=== PATIENT | male | born 1940 | race Caucasian/White ===

== ENCOUNTER → 2017-01-20 | Outpatient (CLI) | payer MEDICARE, BC ==
[2017-01-20 12:09] LABS: ABSOLUTE EOSINOPHILS # (AUTO) 0.1 10^3/uL (0.0-0.6); ABSOLUTE LYMPHOCYTES (AUTO) 1.3 10^3/uL (0.5-4.7); ABSOLUTE MONOCYTES (AUTO) 0.4 10^3/uL (0.1-1.4); ABSOLUTE NEUT (AUTO) 2.8 10^3/uL (1.7-8.2); BASOPHILS % (AUTO) 0.9 % (0-2); HEMATOCRIT 41.4 % (37.9-51.0); HEMOGLOBIN 14.2 g/dL (13.5-17.0); HGB HCT DIFFERENCE 1.2; LYMPHOCYTES % (AUTO) 28.5 % (13-45); MEAN CORPUSCULAR HEMOGLOBIN 32.3 pg (27.0-33.4); MEAN CORPUSCULAR HGB CONC 34.3 g/dL (32.0-36.0); MEAN CORPUSCULAR VOLUME 94 fl (80-97); MONOCYTES % (AUTO) 7.5 % (3-13); RED CELL DISTRIBUTION WIDTH 12.9 % (11.5-14.0); SEGMENTED NEUTROPHILS % (AUTO) 60.1 % (42-78); WHITE BLOOD COUNT 4.7 10^3/uL (4.0-10.5)
[2017-01-20 12:46] LABS: ERYTHROCYTE SEDIMENTATION RATE 22 mm/hr (0-20)
== END ==
LOC: OD 10:59
PROVIDERS: ATTEND Anesthesiology Pain Medicine
DX: M46.46 Discitis, unspecified, lumbar region (principal)
CPT/HCPCS: 36415; 85025; 85652; 86140

== ENCOUNTER → 2017-03-20 | Outpatient (CLI) | payer MEDICARE, BC ==
[2017-03-20 12:12] LABS: HEMATOCRIT 39.1 % (37.9-51.0); HEMOGLOBIN 13.4 g/dL (13.5-17.0); HGB HCT DIFFERENCE 1.1; MEAN CORPUSCULAR HEMOGLOBIN 31.7 pg (27.0-33.4); MEAN CORPUSCULAR HGB CONC 34.2 g/dL (32.0-36.0); MEAN CORPUSCULAR VOLUME 93 fl (80-97); RED BLOOD COUNT 4.22 10^6/uL (4.35-5.55); RED CELL DISTRIBUTION WIDTH 13.3 % (11.5-14.0); WHITE BLOOD COUNT 5.2 10^3/uL (4.0-10.5)
[2017-03-20 12:16] LABS: APPEARANCE,URINE CLEAR; BILIRUBIN,URINE NEGATIVE (NEGATIVE); GLUCOSE, URINE NEGATIVE (NEGATIVE); KETONES,URINE NEGATIVE (NEGATIVE); LEUKOCYTE ESTERASE,URINE TRACE (NEGATIVE); NITRITE,URINE NEGATIVE (NEGATIVE); PROTEIN,URINE NEGATIVE (NEGATIVE); URINE SPECIFIC GRAVITY 1.008; UROBILINOGEN,URINE NEGATIVE mg/dL (<2.0)
[2017-03-20 12:38] LABS: ANION GAP 12 (5-19); BLOOD UREA NITROGEN 28 mg/dL (7-20); CARBON DIOXIDE 28 mmol/L (22-30); CHLORIDE 101 mmol/L (98-107); CREATININE RESULT 1.56 mg/dL (0.52-1.25); GLUCOSE 104 mg/dL (75-110); POTASSIUM 4.3 mmol/L (3.6-5.0); SODIUM 140.5 mmol/L (137-145); URIC ACID 8.9 mg/dL (3.5-8.5)
[2017-03-21 11:40] LABS: CREATININE URINE 55.5 mg/dL (Not Estab.); MICROALBUMIN URINE <3.0 ug/mL (Not Estab.)
== END ==
LOC: OD 11:21
PROVIDERS: ATTEND Internal Medicine Nephrology
DX: I12.9 Hypertensive chronic kidney disease with stage 1 through stage 4 chronic kidney disease, or unspecified chronic kidney disease (principal); N18.2 Chronic kidney disease, stage 2 (mild); M10.9 Gout, unspecified
CPT/HCPCS: 36415; 80048; 81001; 82043; 82570; 84550; 85027

== ENCOUNTER → 2017-05-19 | Outpatient (CLI) | payer MEDICARE, BC ==
[2017-05-19 11:48] LABS: ANION GAP 10 (5-19); BLOOD UREA NITROGEN 24 mg/dL (7-20); CALCIUM 9.6 mg/dL (8.4-10.2); CARBON DIOXIDE 29 mmol/L (22-30); CHLORIDE 101 mmol/L (98-107); CREATININE RESULT 1.54 mg/dL (0.52-1.25); GLUCOSE 95 mg/dL (75-110); POTASSIUM 4.6 mmol/L (3.6-5.0); SODIUM 139.9 mmol/L (137-145); URIC ACID 5.8 mg/dL (3.5-8.5)
== END ==
LOC: OD 10:22
PROVIDERS: ATTEND Internal Medicine Nephrology
DX: I12.9 Hypertensive chronic kidney disease with stage 1 through stage 4 chronic kidney disease, or unspecified chronic kidney disease (principal); N18.3 Chronic kidney disease, stage 3 (moderate); R60.9 Edema, unspecified; M10.00 Idiopathic gout, unspecified site
CPT/HCPCS: 36415; 80048; 84550

== ENCOUNTER → 2017-08-25 | Outpatient (CLI) | payer MEDICARE, BC ==
[2017-08-25 12:39] LABS: HEMATOCRIT 34.6 % (37.9-51.0); HEMOGLOBIN 11.8 g/dL (13.5-17.0); HGB HCT DIFFERENCE 0.8; MEAN CORPUSCULAR HEMOGLOBIN 32.1 pg (27.0-33.4); MEAN CORPUSCULAR HGB CONC 34.1 g/dL (32.0-36.0); MEAN CORPUSCULAR VOLUME 94 fl (80-97); RED BLOOD COUNT 3.67 10^6/uL (4.35-5.55); RED CELL DISTRIBUTION WIDTH 14.7 % (11.5-14.0); WHITE BLOOD COUNT 6.6 10^3/uL (4.0-10.5)
[2017-08-25 12:56] LABS: APPEARANCE,URINE CLEAR; BILIRUBIN,URINE NEGATIVE (NEGATIVE); GLUCOSE, URINE NEGATIVE (NEGATIVE); KETONES,URINE NEGATIVE (NEGATIVE); LEUKOCYTE ESTERASE,URINE NEGATIVE (NEGATIVE); NITRITE,URINE NEGATIVE (NEGATIVE); PROTEIN,URINE NEGATIVE (NEGATIVE); URINE SPECIFIC GRAVITY 1.014; UROBILINOGEN,URINE NEGATIVE mg/dL (<2.0)
[2017-08-25 12:58] LABS: ANION GAP 11 (5-19); BLOOD UREA NITROGEN 32 mg/dL (7-20); CALCIUM 9.6 mg/dL (8.4-10.2); CARBON DIOXIDE 26 mmol/L (22-30); CHLORIDE 102 mmol/L (98-107); CREATININE RESULT 1.74 mg/dL (0.52-1.25); GLUCOSE 106 mg/dL (75-110); POTASSIUM 4.6 mmol/L (3.6-5.0); SODIUM 139.1 mmol/L (137-145)
== END ==
LOC: OD 11:48
PROVIDERS: ATTEND Physician Assistant Medical
DX: I12.9 Hypertensive chronic kidney disease with stage 1 through stage 4 chronic kidney disease, or unspecified chronic kidney disease (principal); N18.3 Chronic kidney disease, stage 3 (moderate); R60.9 Edema, unspecified; M10.00 Idiopathic gout, unspecified site
CPT/HCPCS: 36415; 80048; 81001; 85027

== ENCOUNTER → 2017-10-23 | Outpatient (CLI) | payer MEDICARE, BC ==
[2017-10-23 13:52] LABS: APPEARANCE,URINE SLIGHTLY-CLOUDY; BILIRUBIN,URINE NEGATIVE (NEGATIVE); GLUCOSE, URINE NEGATIVE (NEGATIVE); KETONES,URINE NEGATIVE (NEGATIVE); LEUKOCYTE ESTERASE,URINE TRACE (NEGATIVE); NITRITE,URINE NEGATIVE (NEGATIVE); PROTEIN,URINE NEGATIVE (NEGATIVE); URINE SPECIFIC GRAVITY 1.018
[2017-10-23 13:57] LABS: HEMATOCRIT 34.3 % (37.9-51.0); HEMOGLOBIN 11.8 g/dL (13.5-17.0); HGB HCT DIFFERENCE 1.1; MEAN CORPUSCULAR HEMOGLOBIN 31.8 pg (27.0-33.4); MEAN CORPUSCULAR HGB CONC 34.3 g/dL (32.0-36.0); MEAN CORPUSCULAR VOLUME 93 fl (80-97); RED CELL DISTRIBUTION WIDTH 14.8 % (11.5-14.0); WHITE BLOOD COUNT 5.3 10^3/uL (4.0-10.5)
[2017-10-23 14:04] LABS: BACTERIA,URINE TRACE /HPF; HYALINE CASTS, URINE RARE /LPF; RBC,URINE 0-1 /HPF; WBC,URINE 0-1 /HPF
[2017-10-23 14:14] LABS: URINE CREATININE 238.1 mg/dL (22-328); URINE PROTEIN 8.6 mg/dL (<12)
[2017-10-23 14:16] LABS: ANION GAP 13 (5-19); BLOOD UREA NITROGEN 30 mg/dL (7-20); CALCIUM 9.3 mg/dL (8.4-10.2); CARBON DIOXIDE 25 mmol/L (22-30); CHLORIDE 103 mmol/L (98-107); GLUCOSE 100 mg/dL (75-110); POTASSIUM 5.2 mmol/L (3.6-5.0); SODIUM 141.3 mmol/L (137-145)
== END ==
LOC: OD 12:51
PROVIDERS: ATTEND Physician Assistant Medical
DX: I12.9 Hypertensive chronic kidney disease with stage 1 through stage 4 chronic kidney disease, or unspecified chronic kidney disease (principal); N18.3 Chronic kidney disease, stage 3 (moderate); M10.00 Idiopathic gout, unspecified site
CPT/HCPCS: 36415; 80048; 81001; 82570; 84156; 85027

== ENCOUNTER → 2017-12-18 | Outpatient (CLI) | payer MEDICARE, BC ==
[2017-12-18 14:28] LABS: ANION GAP 9 (5-19); BLOOD UREA NITROGEN 37 mg/dL (7-20); CALCIUM 9.8 mg/dL (8.4-10.2); CARBON DIOXIDE 30 mmol/L (22-30); CHLORIDE 103 mmol/L (98-107); GLUCOSE 94 mg/dL (75-110); POTASSIUM 4.8 mmol/L (3.6-5.0); SODIUM 141.5 mmol/L (137-145); URIC ACID 5.7 mg/dL (3.5-8.5)
== END ==
LOC: OD 13:07
PROVIDERS: ATTEND Internal Medicine Nephrology
DX: I12.9 Hypertensive chronic kidney disease with stage 1 through stage 4 chronic kidney disease, or unspecified chronic kidney disease (principal); N18.3 Chronic kidney disease, stage 3 (moderate); E87.5 Hyperkalemia
CPT/HCPCS: 36415; 80048; 84550

== ENCOUNTER → 2018-04-04 | Outpatient (CLI) | payer MEDICARE, BC ==
[2018-04-04 11:42] LABS: HEMATOCRIT 34.8 % (37.9-51.0); HEMOGLOBIN 11.7 g/dL (13.5-17.0); MEAN CORPUSCULAR HEMOGLOBIN 31.7 pg (27.0-33.4); MEAN CORPUSCULAR HGB CONC 33.7 g/dL (32.0-36.0); MEAN CORPUSCULAR VOLUME 94 fl (80-97); PLATELET COUNT 213 10^3/uL (150-450); RED CELL DISTRIBUTION WIDTH 14.6 % (11.5-14.0); WHITE BLOOD COUNT 5.4 10^3/uL (4.0-10.5)
[2018-04-04 12:10] LABS: ANION GAP 12 (5-19); BLOOD UREA NITROGEN 39 mg/dL (7-20); CALCIUM 9.4 mg/dL (8.4-10.2); CARBON DIOXIDE 26 mmol/L (22-30); CHLORIDE 105 mmol/L (98-107); GLUCOSE 92 mg/dL (75-110); POTASSIUM 5.2 mmol/L (3.6-5.0); SODIUM 142.8 mmol/L (137-145)
== END ==
LOC: OD 10:45
PROVIDERS: ATTEND Internal Medicine Nephrology
DX: I12.9 Hypertensive chronic kidney disease with stage 1 through stage 4 chronic kidney disease, or unspecified chronic kidney disease (principal); N18.3 Chronic kidney disease, stage 3 (moderate); M10.00 Idiopathic gout, unspecified site
CPT/HCPCS: 36415; 80048; 85027

== ENCOUNTER → 2018-05-22 | Outpatient (CLI) | payer MEDICARE, BC ==
[2018-05-22 15:03] LABS: ABSOLUTE EOSINOPHILS # (AUTO) 0.2 10^3/uL (0.0-0.6); ABSOLUTE LYMPHOCYTES (AUTO) 1.2 10^3/uL (0.5-4.7); ABSOLUTE MONOCYTES (AUTO) 0.3 10^3/uL (0.1-1.4); ABSOLUTE NEUT (AUTO) 2.7 10^3/uL (1.7-8.2); BASOPHILS % (AUTO) 0.8 % (0-2); EOSINOPHILS % (AUTO) 5.4 % (0-6); HEMATOCRIT 34.1 % (37.9-51.0); HEMOGLOBIN 11.4 g/dL (13.5-17.0); LYMPHOCYTES % (AUTO) 26.5 % (13-45); MEAN CORPUSCULAR HEMOGLOBIN 31.6 pg (27.0-33.4); MEAN CORPUSCULAR HGB CONC 33.6 g/dL (32.0-36.0); MEAN CORPUSCULAR VOLUME 94 fl (80-97); MONOCYTES % (AUTO) 7.3 % (3-13); PLATELET COUNT 229 10^3/uL (150-450); RED BLOOD COUNT 3.62 10^6/uL (4.35-5.55); RED CELL DISTRIBUTION WIDTH 14.1 % (11.5-14.0); TOTAL CELLS COUNTED % (AUTO) 100 %; WHITE BLOOD COUNT 4.5 10^3/uL (4.0-10.5)
[2018-05-22 15:12] LABS: PROTHROMBIN TIME 13.7 SEC (11.4-15.4)
[2018-05-22 15:13] LABS: PARTIAL THROMBOPLASTIN TIME 39.2 SEC (23.5-35.8)
[2018-05-22 15:16] LABS: APPEARANCE,URINE CLEAR; BILIRUBIN,URINE NEGATIVE (NEGATIVE); COLOR,URINE YELLOW; GLUCOSE, URINE NEGATIVE (NEGATIVE); KETONES,URINE NEGATIVE (NEGATIVE); LEUKOCYTE ESTERASE,URINE NEGATIVE (NEGATIVE); NITRITE,URINE NEGATIVE (NEGATIVE); PROTEIN,URINE NEGATIVE (NEGATIVE); URINE SPECIFIC GRAVITY 1.018; UROBILINOGEN,URINE NEGATIVE mg/dL (<2.0)
== END ==
LOC: OD 14:07
PROVIDERS: ATTEND Pain Medicine Interventional Pain Medicine
DX: Z01.812 Encounter for preprocedural laboratory examination (principal); D68.9 Coagulation defect, unspecified; G89.4 Chronic pain syndrome
CPT/HCPCS: 36415; 81001; 85025; 85610; 85730

== ENCOUNTER 2018-06-26 09:23 | Day surgery (SDC) | payer MEDICARE, BC ==
[2018-06-18 10:00] LABS: HEMATOCRIT 36.8 % (37.9-51.0); HEMOGLOBIN 12.3 g/dL (13.5-17.0); MEAN CORPUSCULAR HEMOGLOBIN 31.7 pg (27.0-33.4); MEAN CORPUSCULAR HGB CONC 33.5 g/dL (32.0-36.0); MEAN CORPUSCULAR VOLUME 95 fl (80-97); PLATELET COUNT 308 10^3/uL (150-450); RED BLOOD COUNT 3.88 10^6/uL (4.35-5.55); RED CELL DISTRIBUTION WIDTH 15.1 % (11.5-14.0); WHITE BLOOD COUNT 6.4 10^3/uL (4.0-10.5)
[2018-06-18 10:06] LABS: INTERNATIONAL RATION (INR) 0.92; PROTHROMBIN TIME 12.8 SEC (11.4-15.4)
[2018-06-18 10:07] LABS: PARTIAL THROMBOPLASTIN TIME 35.1 SEC (23.5-35.8)
--- NOTE | 2018-06-18 12:40 | RADIOLOGY REPORT (SQ) ---
EXAM DESCRIPTION: CHEST PA/LATERAL COMPLETED DATE/TIME: 06/18/2018 10:45 am REASON FOR STUDY: PRE-OP COMPARISON: 02/23/2016. EXAM PARAMETERS: NUMBER OF VIEWS: two views TECHNIQUE: Digital Frontal and Lateral radiographic views of the chest acquired. RADIATION DOSE: NA LIMITATIONS: none FINDINGS: LUNGS AND PLEURA: A few linear densities in the left lower lobe. Moderate left pleural ef fusion. Right lung clear. MEDIASTINUM AND HILAR STRUCTURES: No masses or contour abnormalities. HEART AND VASCULAR STRUCTURES: Heart normal size. No evidence for failure. BONES: No acute findings. HARDWARE: Hardware in the lumbar spine. OTHER: No other significant finding. IMPRESSION: LINEAR ATELECTASIS AND/OR SCARRING IN THE LEFT LUNG WITH MODERATE PLEURAL EFFUSION. TECHNICAL DOCUMENTATION: JOB ID: [id number] [employer]- All Rights Reserved Reading location - IP/workstation name: [email or web address]
[2018-06-18 14:00] LABS: APPEARANCE,URINE CLEAR; BILIRUBIN,URINE NEGATIVE (NEGATIVE); COLOR,URINE YELLOW; GLUCOSE, URINE NEGATIVE (NEGATIVE); KETONES,URINE NEGATIVE (NEGATIVE); LEUKOCYTE ESTERASE,URINE NEGATIVE (NEGATIVE); NITRITE,URINE NEGATIVE (NEGATIVE); PROTEIN,URINE NEGATIVE (NEGATIVE); URINE SPECIFIC GRAVITY 1.015; UROBILINOGEN,URINE NEGATIVE mg/dL (<2.0)
--- NOTE | 2018-06-18 17:56 | EKG REPORT ---
SEVERITY:- OTHERWISE NORMAL ECG - SINUS RHYTHM VENTRICULAR PREMATURE COMPLEX LOW VOLTAGE IN FRONTAL LEADS : Confirmed by: Jasiel Lanier 18-Jun-2018 17:55:59
[~2018-06-26 09:23] MED LIST: CEFAZOLIN 1 GM/D5W RTU 1 GM/50 ML RTUPB IV PRN; LACTATED RINGERS 1000 ML IV PRN; LIDOCAINE 0.5% INJ-PF (5 MG/ML) 50 ML SDV SUBCUT PRN
[2018-06-26] MEDS ORDERED: LIDOCAINE 1% INJ-PF (10 MG/ML) 30 ML SDV ONE (11:53)
[2018-06-26] MEDS ORDERED: BUPIVACAINE HCL 0.25% /EPINEPHRINE INJ/PF 30 ML SDV ONE (11:53)
[2018-06-26] MEDS ORDERED: SODIUM BICARBONATE 8.4% INJ 50 MEQ/50 ML DISP.SYRIN ONE (11:53)
[2018-06-26] MEDS ORDERED: MIDAZOLAM 2 MG/2 ML INJ ONE (11:56)
[2018-06-26] MEDS ORDERED: PROPOFOL INJ 200 MG/20 ML VIAL IV ONE (11:56)
[2018-06-26] MEDS ORDERED: FENTANYL CITRATE INJ/PF 100 MCG/2 ML AMPUL ONE (11:56)
[2018-06-26] MEDS ORDERED: OXYCODONE-ACETAMINOPHEN 5-325 MG TABLET PO PRN ×2 (12:35)
[2018-06-26] MEDS ORDERED: FENTANYL CITRATE INJ/PF 100 MCG/2 ML AMPUL IV PRN ×3 (12:35)
[2018-06-26] MEDS ORDERED: MEPERIDINE HCL/PF INJ 25 MG/1 ML DISP.SYRIN IV PRN (12:35)
[2018-06-26] MEDS ORDERED: DIPHENHYDRAMINE HCL 50 MG/ML VIAL IV PRN (12:35)
[2018-06-26] MEDS ORDERED: PROMETHAZINE HCL INJ 25 MG/1 ML VIAL IV PRN ×2 (12:35)
[2018-06-26] MEDS ORDERED: MORPHINE SULFATE 10 MG/ML INJ IV PRN (12:35)
[2018-06-26] MEDS ORDERED: CEFAZOLIN INJ 1 GM VIAL ONE (13:46)
[2018-06-26] MEDS ORDERED: OXYCODONE HCL IR 5 MG TABLET PO PRN (14:22)
--- NOTE | 2018-06-26 14:30 | OPERATIVE REPORT E ---
Operative Report NAME: DOMINGA LINDSEY : 1940 AGE: 77Y DATE OF SURGERY: 06/26/2018 ROOM: PREOPERATIVE DIAGNOSIS: Post-laminectomy syndrome with chronic back and lower extremity pain. POSTOPERATIVE DIAGNOSIS: Post-laminectomy syndrome with chronic back and lower extremity pain. OPERATIVE PROCEDURE: Surgical implantation of right and left spinal cord stimulator electrodes as well as implantation of program rechargeable [employer] pulse generator under fluoroscopic guidance with complex programming. SURGEON: MARISEL GHOTRA M.D. INDICATIONS: Successful outpatient trial of spinal cord stimulation. TITLE SUPERVISOR: DOMINGA RICHMOND M.D. ANESTHESIA: MAC. BLOOD LOSS: 10 mL. COMPLICATIONS: None. SPECIMENS REMOVED: None. PROCEDURE NOTE: After obtaining informed consent and advising the patient of the risks and benefits, including serious neurological injury, bleeding, and infection, inadequate pain relief, allergic reaction, paralysis, and , he was taken to the operating room and placed comfortably in the prone position. He was prepped and draped in the usual fashion after MAC anesthesia was administered. Appropriate 3-minute drying time was allowed. Fluoroscopy was then utilized to evaluate the spine. Suitable entrance site for the T12-L1 interspace was identified. The skin was marked accordingly as had been marked over the right posterior gluteal region for the insertion of the pulse generator. Once appropriate timeout was done, surgical dissection was performed. Lidocaine 1% and 0.25% bupivacaine with lidocaine were utilized at both surgical sites. Sharp and blunt dissection were performed down. Electrocautery was used for hemostasis as necessary. In the midline, once a suitable working area was identified, the paraspinal musculature was anesthetized down to the level of T12-L1 at the epidural interspace with a spinal needle with 1% lidocaine. Curved Tuohy needle was inserted on the right followed by one on the left using [id number] to saline technique to enter the epidural space. No heme or cerebrospinal fluid were noted. The electrodes were placed with some difficulty due to scarring. Repositioning was required. The right electrode eventually required the use of an introducer to achieve satisfactory placement. Eventually, both leads were placed near midline right and left to the top of T8 and the bottom of T10. Trial stimulation was then performed and suitable stimulation was obtained in all necessary locations *------* to implant. The 0 Mersilene pursestrings were placed around each needle followed by a distal stay suture. The needle was then removed slowly with care being placed not to dislodge the needle on the left. Pursestring was then secured after placement of the tubular anchor. The pursestring was then secured to the anchor. Additional anchoring stitches were utilized to create a suitable anchor and site. This was then repeated on the left after removal of the introducer Introde. Again, the anchor was placed followed by tightening of the pursestring securing this followed by additional suture to hold the anchor in place. The leads were then tunneled to the pulse generator pocket and connected to the pulse generator. All hex nuts were secured. Impedance was tested and connectivity was tested and all was satisfactory. Decision was made to complete the implant. All bones were copiously irrigated with Betadine-containing irrigation solution. The leads in the midline were tapped down with 0 Mersilene. The generator was placed in the pocket with the labeling facing the skin. The wounds were then closed with interrupted vertical inverted mattress sutures using 3-0 Polysorb. Edges came together quite nicely. Dermabond tape followed by Dermabond cement was placed. When this was dry, Telfa and sponge and Tegaderms were placed. The patient was then taken to the PACU for further postoperative care and monitoring. DICTATING PHYSICIAN: MARISEL GHOTRA M.D. [id number] PHY#: [id number] ID: [id number] JOB#: [id number] ACCT: [id number] cc:MARISEL GHOTRA M.D. >
--- NOTE | 2018-06-26 15:49 | RADIOLOGY REPORT (SQ) ---
EXAM DESCRIPTION: NO CHG FLUORO; THORACOLUMBAR SPINE AP/LAT COMPLETED DATE/TIME: 06/26/2018 3:12 pm REASON FOR STUDY: SPINAL STIMULATOR ASST WITH FLUORO IN OR G89.4 CHRONIC PAIN SYNDROME Z79.01 SKILLED NURSING (CURRENT) USE OF ANTICOAGULANTS COMPARISON: None. FLUOROSCOPY TIME: 11.2 minute is 15 images saved to PACS. TECHNIQUE: Intra-operative images acquired during surgical procedure to evaluate progress. NUMBER OF IMAGES: 15 LIMITATIONS: None. FINDINGS: Selected images from thoracic neurostimulator placement in the operating room. IMPRESSION: IMAGE(S) OBTAINED DURING PROCEDURE. COMMENT: Quality ID 145: Final reports for procedures using fluoroscopy that document radiation exp osure indices, or exposure time and number of fluorographic images (if radiation exposure indices are not available) Please consult full operative report of the attending physician for description of the procedure. TECHNICAL DOCUMENTATION: JOB ID: [id number] [employer] All Rights Reserved Reading location - IP/workstation name: [facility]-RR
--- NOTE | 2018-06-26 15:49 | RADIOLOGY REPORT (SQ) ---
EXAM DESCRIPTION: NO CHG FLUORO; THORACOLUMBAR SPINE AP/LAT COMPLETED DATE/TIME: 06/26/2018 3:12 pm REASON FOR STUDY: SPINAL STIMULATOR ASST WITH FLUORO IN OR G89.4 CHRONIC PAIN SYNDROME Z79.01 [facility] (CURRENT) USE OF ANTICOAGULANTS COMPARISON: None. FLUOROSCOPY TIME: 11.2 minute is 15 images saved to PACS. TECHNIQUE: Intra-operative images acquired during surgical procedure to evaluate progress. NUMBER OF IMAGES: 15 LIMITATIONS: None. FINDINGS: Selected images from thoracic neurostimulator placement in the operating room. IMPRESSION: IMAGE(S) OBTAINED DURING PROCEDURE. COMMENT: Quality ID [id number]: Final reports for procedures using fluoroscopy that document radiation exp osure indices, or exposure time and number of fluorographic images (if radiation exposure indices are not available) Please consult full operative report of the attending physician for description of the procedure. TECHNICAL DOCUMENTATION: JOB ID: [id number] [employer]- All Rights Reserved Reading location - IP/workstation name: [facility]-RR
[2018-06-26 16:07] VITALS: BP 104/58
[2018-06-26] MEDS ORDERED: CEFAZOLIN 1 GM/D5W RTU 1 GM/50 ML RTUPB IV ONE (22:00)
== END 2018-06-26 16:11 | disposition home or self-care (01) ==
LOC: OROUT 09:23
PROVIDERS: ATTEND Pain Medicine Interventional Pain Medicine
DX: G89.4 Chronic pain syndrome (principal); Z79.01 Long term (current) use of anticoagulants; M19.90 Unspecified osteoarthritis, unspecified site; I10 Essential (primary) hypertension; Z79.899 Other long term (current) drug therapy; Z79.82 Long term (current) use of aspirin; Z87.891 Personal history of nicotine dependence
CPT/HCPCS: 63685; 63650; 93005; 36415; 85027; 85610; 85730; 81001; 71046; 72080; 93010; C1778; J2250; J3490 ×3; J0690 ×2; J3010; J2704; 1936

== ENCOUNTER → 2018-08-27 | Outpatient (CLI) | payer MEDICARE, BC ==
[2018-08-27 12:25] LABS: ABSOLUTE EOSINOPHILS # (AUTO) 0.1 10^3/uL (0.0-0.6); ABSOLUTE LYMPHOCYTES (AUTO) 1.2 10^3/uL (0.5-4.7); ABSOLUTE MONOCYTES (AUTO) 0.3 10^3/uL (0.1-1.4); ABSOLUTE NEUT (AUTO) 4.8 10^3/uL (1.7-8.2); BASOPHILS % (AUTO) 0.7 % (0-2); EOSINOPHILS % (AUTO) 2.3 % (0-6); HEMOGLOBIN 10.7 g/dL (13.5-17.0); MEAN CORPUSCULAR HEMOGLOBIN 32.1 pg (27.0-33.4); MEAN CORPUSCULAR HGB CONC 34.4 g/dL (32.0-36.0); MEAN CORPUSCULAR VOLUME 94 fl (80-97); MONOCYTES % (AUTO) 5.1 % (3-13); PLATELET COUNT 258 10^3/uL (150-450); RED BLOOD COUNT 3.32 10^6/uL (4.35-5.55); RED CELL DISTRIBUTION WIDTH 14.5 % (11.5-14.0); SEGMENTED NEUTROPHILS % (AUTO) 73.9 % (42-78); TOTAL CELLS COUNTED % (AUTO) 100 %; WHITE BLOOD COUNT 6.6 10^3/uL (4.0-10.5)
[2018-08-27 13:10] LABS: ALANINE AMINOTRANSFERASE 15 U/L (21-72); ALBUMIN 3.9 g/dL (3.5-5.0); ALKALINE PHOSPHATASE 112 U/L (38-126); ANION GAP 10 (5-19); ASPARTATE AMINO TRANSFERASE 14 U/L (17-59); BILIRUBIN,DIRECT 0.3 mg/dL (0.0-0.4); BILIRUBIN,TOTAL 0.4 mg/dL (0.2-1.3); BLOOD UREA NITROGEN 29 mg/dL (7-20); CALCIUM 9.3 mg/dL (8.4-10.2); CARBON DIOXIDE 27 mmol/L (22-30); CHLORIDE 105 mmol/L (98-107); GLUCOSE 100 mg/dL (75-110); IRON(TIBC) 31.3 ug/dL (49-181); POTASSIUM 5.2 mmol/L (3.6-5.0); SODIUM 141.8 mmol/L (137-145); TOTAL PROTEIN 6.6 g/dL (6.3-8.2)
[2018-08-27 13:11] LABS: APPEARANCE,URINE CLEAR; BILIRUBIN,URINE NEGATIVE (NEGATIVE); COLOR,URINE YELLOW; GLUCOSE, URINE NEGATIVE (NEGATIVE); KETONES,URINE NEGATIVE (NEGATIVE); LEUKOCYTE ESTERASE,URINE NEGATIVE (NEGATIVE); NITRITE,URINE NEGATIVE (NEGATIVE); PROTEIN,URINE NEGATIVE (NEGATIVE); UROBILINOGEN,URINE NEGATIVE mg/dL (<2.0)
[2018-08-27 13:18] LABS: URINE SPECIFIC GRAVITY 1.016
[2018-08-28 16:39] LABS: A/G RATIO 1.1 (0.7-1.7); ALBUMIN 2 3.3 g/dL (2.9-4.4); ALPHA-2-GLOBULIN 2 0.9 g/dL (0.4-1.0); BETA GLOBULINS 0.9 g/dL (0.7-1.3); GLOBULIN TOTAL 3.1 g/dL (2.2-3.9); MONOCLONAL SPIKE Not Observed g/dL (Not Observ); PROTEIN TOTAL SERUM 6.4 g/dL (6.0-8.5)
== END ==
LOC: OD 11:36
PROVIDERS: ATTEND Internal Medicine Nephrology
DX: I12.9 Hypertensive chronic kidney disease with stage 1 through stage 4 chronic kidney disease, or unspecified chronic kidney disease (principal); N18.3 Chronic kidney disease, stage 3 (moderate); D64.9 Anemia, unspecified; M10.00 Idiopathic gout, unspecified site
CPT/HCPCS: 36415; 80053; 81001; 82728; 83540; 83550; 84165; 84443; 85025

== ENCOUNTER → 2019-03-11 | Outpatient (CLI) | payer MEDICARE, BC ==
[2019-03-11 16:24] LABS: ABSOLUTE EOSINOPHILS # (AUTO) 0.2 10^3/uL (0.0-0.6); ABSOLUTE LYMPHOCYTES (AUTO) 1.2 10^3/uL (0.5-4.7); ABSOLUTE MONOCYTES (AUTO) 0.3 10^3/uL (0.1-1.4); BASOPHILS % (AUTO) 0.8 % (0-2); EOSINOPHILS % (AUTO) 3.5 % (0-6); HEMATOCRIT 33.1 % (37.9-51.0); HEMOGLOBIN 11.3 g/dL (13.5-17.0); LYMPHOCYTES % (AUTO) 25.4 % (13-45); MEAN CORPUSCULAR HGB CONC 34.3 g/dL (32.0-36.0); MEAN CORPUSCULAR VOLUME 93 fl (80-97); MONOCYTES % (AUTO) 6.9 % (3-13); PLATELET COUNT 209 10^3/uL (150-450); RED BLOOD COUNT 3.55 10^6/uL (4.35-5.55); RED CELL DISTRIBUTION WIDTH 14.7 % (11.5-14.0); SEGMENTED NEUTROPHILS % (AUTO) 63.4 % (42-78); TOTAL CELLS COUNTED % (AUTO) 100 %; WHITE BLOOD COUNT 4.7 10^3/uL (4.0-10.5)
[2019-03-11 16:56] LABS: ALANINE AMINOTRANSFERASE 15 U/L (21-72); ALBUMIN 4.1 g/dL (3.5-5.0); ALKALINE PHOSPHATASE 113 U/L (38-126); ANION GAP 8 (5-19); ASPARTATE AMINO TRANSFERASE 13 U/L (17-59); BILIRUBIN,DIRECT 0.3 mg/dL (0.0-0.4); BILIRUBIN,TOTAL 0.3 mg/dL (0.2-1.3); BLOOD UREA NITROGEN 32 mg/dL (7-20); CALCIUM 9.4 mg/dL (8.4-10.2); CARBON DIOXIDE 25 mmol/L (22-30); CHLORIDE 106 mmol/L (98-107); GLUCOSE 99 mg/dL (75-110); SODIUM 138.5 mmol/L (137-145); TOTAL PROTEIN 6.7 g/dL (6.3-8.2); URIC ACID 5.9 mg/dL (3.5-8.5)
[2019-03-11 17:32] LABS: APPEARANCE,URINE CLEAR; BILIRUBIN,URINE NEGATIVE (NEGATIVE); COLOR,URINE YELLOW; GLUCOSE, URINE NEGATIVE (NEGATIVE); KETONES,URINE NEGATIVE (NEGATIVE); LEUKOCYTE ESTERASE,URINE NEGATIVE (NEGATIVE); NITRITE,URINE NEGATIVE (NEGATIVE); PROTEIN,URINE NEGATIVE (NEGATIVE); URINE SPECIFIC GRAVITY 1.013; UROBILINOGEN,URINE NEGATIVE mg/dL (<2.0)
== END ==
LOC: OD 15:39
PROVIDERS: ATTEND Internal Medicine Nephrology
DX: I12.9 Hypertensive chronic kidney disease with stage 1 through stage 4 chronic kidney disease, or unspecified chronic kidney disease (principal); N18.3 Chronic kidney disease, stage 3 (moderate); M10.00 Idiopathic gout, unspecified site; D64.9 Anemia, unspecified
CPT/HCPCS: 36415; 80053; 81001; 84550; 85025

== ENCOUNTER → 2019-11-27 | Outpatient (CLI) | payer MEDICARE, BC ==
[2019-11-27 14:19] LABS: ABSOLUTE EOSINOPHILS # (AUTO) 0.2 10^3/uL (0.0-0.6); ABSOLUTE LYMPHOCYTES (AUTO) 1.2 10^3/uL (0.5-4.7); ABSOLUTE MONOCYTES (AUTO) 0.3 10^3/uL (0.1-1.4); ABSOLUTE NEUT (AUTO) 2.9 10^3/uL (1.7-8.2); BASOPHILS % (AUTO) 0.7 % (0-2); HEMATOCRIT 35.7 % (37.9-51.0); HEMOGLOBIN 12.3 g/dL (13.5-17.0); LYMPHOCYTES % (AUTO) 25.2 % (13-45); MEAN CORPUSCULAR HEMOGLOBIN 32.3 pg (27.0-33.4); MEAN CORPUSCULAR HGB CONC 34.4 g/dL (32.0-36.0); MEAN CORPUSCULAR VOLUME 94 fl (80-97); MONOCYTES % (AUTO) 7.1 % (3-13); PLATELET COUNT 208 10^3/uL (150-450); RED CELL DISTRIBUTION WIDTH 14.8 % (11.5-14.0); TOTAL CELLS COUNTED % (AUTO) 100 %; WHITE BLOOD COUNT 4.6 10^3/uL (4.0-10.5)
[2019-11-27 14:30] LABS: APPEARANCE,URINE CLEAR; BILIRUBIN,URINE NEGATIVE (NEGATIVE); COLOR,URINE YELLOW; GLUCOSE, URINE NEGATIVE (NEGATIVE); KETONES,URINE NEGATIVE (NEGATIVE); LEUKOCYTE ESTERASE,URINE NEGATIVE (NEGATIVE); NITRITE,URINE NEGATIVE (NEGATIVE); PROTEIN,URINE NEGATIVE (NEGATIVE); UROBILINOGEN,URINE NEGATIVE mg/dL (<2.0)
[2019-11-27 14:48] LABS: ANION GAP 7 (5-19); BLOOD UREA NITROGEN 36 mg/dL (7-20); CARBON DIOXIDE 28 mmol/L (22-30); CHLORIDE 103 mmol/L (98-107); GLUCOSE 101 mg/dL (75-110); IRON(TIBC) 62.1 ug/dL (49-181); POTASSIUM 5.2 mmol/L (3.6-5.0)
== END ==
LOC: OD 13:44
PROVIDERS: ATTEND Physician Assistant Medical
DX: I12.9 Hypertensive chronic kidney disease with stage 1 through stage 4 chronic kidney disease, or unspecified chronic kidney disease (principal); N18.3 Chronic kidney disease, stage 3 (moderate); R60.9 Edema, unspecified; E87.5 Hyperkalemia; D64.9 Anemia, unspecified
CPT/HCPCS: 36415; 80048; 81001; 82728; 83540; 83550; 83970; 84100; 85025